=== PATIENT | female | born 1980 | race Caucasian/White ===

== ENCOUNTER 2018-12-23 14:26 | Emergency (ER) | payer BC ==
[2018-12-23] MEDS ORDERED: Lidocaine 1% 30 ML SDV INJECT ONE (14:44)
[2018-12-23] MEDS ORDERED: Diphtheria,Pertussis(Acell),Tetanus Vaccine 0.5 ML Syringe IM ONE (14:48)
--- NOTE | 2018-12-23 21:59 | EDM.PDOC ---
ED HPI GENERAL MEDICAL PROBLEM - General Chief Complaint: Laceration Stated Complaint: laceration left thumb Time Seen by Provider: 12/23/18 14:40 Source of Information: Reports: Patient History Limitations: Reports: No Limitations - History of Present Illness INITIAL COMMENTS - FREE TEXT/NARRATIVE: Pt. sustained a laceration to L dorsal distal thumb with a knife. Her tetanus is not up to date. Denies any injury elsewhere. Pt. has normal ROM to the digit. No numbness/tingling in the distal portion of the extremity. Onset: Today Onset Date: 12/23/18 Location: Reports: Upper Extremity, Left Quality: Reports: Sharp Left Finger-Thumb Pain Score (Numeric/FACES): 5 - Related Data Allergies Allergy/AdvReac Type Severity Reaction Status Date / Time guaifenesin [From Robitussin] Allergy Hives Verified 12/23/18 14:31 Home Meds: Home Meds Sertraline HCl 1 tab PO DAILY 12/23/18 [History] Past Medical History Psychiatric History: Reports: Depression Social & Family History - Tobacco Use Smoking Status *Q: Never Smoker ED ROS GENERAL - Review of Systems Review Of Systems: Unable To Obtain ED EXAM, SKIN/RASH Exam: See Below Exam Limited By: No Limitations General Appearance: Alert, WD/WN, No Apparent Distress Extremities: Other (2 cm laceration to dorsal aspect L thumb. It is superficial. No obvious injury to underlying structures.) ED SKIN PROCEDURES - Laceration/Wound Repair Left Dorsal Digit - 1st (Thumb) Lac/Wound length In cm: 2 Appearance: Superficial Distal NVT: Neuro & Vascular Intact Local Anesthesia - Lidocaine (Xylocaine): 1% Plain Local Anesthetic Volume: 3cc Skin Prep: Chlorhexidine (Hibiciens), Saline Exploration/Debridement/Repair: Wound Explored, Explored to Base, No Foreign Material Found Closed with: Sutures Suture Size: 4-0 Suture Type: Nylon Course - Vital Signs Last Recorded V/S: Last Vital Signs Temp 36.4 C 12/23/18 14:32 Pulse 84 12/23/18 14:32 Resp 18 12/23/18 14:32 BP 101/74 12/23/18 14:32 Pulse Ox 100 12/23/18 14:32 - Orders/Labs/Meds Orders: Active Orders 24 hr Category Date Time Status Vaccines to be Administered [RC] PER UNIT ROUTINE Care 12/23/18 14:48 Active Meds: Medications Discontinued Medications Generic Name Dose Route Start Last Admin Trade Name Ashley PRN Reason Stop Dose Admin Diphtheria/Tetanus/Acell Pertussis 0.5 ml 12/23/18 14:48 12/23/18 15:00 Adacel IM 12/23/18 14:49 0.5 ml .ONCE ONE Administration Lidocaine HCl 30 ml 12/23/18 14:44 12/23/18 14:47 Xylocaine-Mpf 1% INJECT 12/23/18 14:45 30 ml ONETIME ONE Administration Departure - Departure Time of Disposition: 15:00 Disposition: Home, Self-Care 01 Condition: Good Clinical Impression: Laceration - Discharge Information Instructions: Laceration Care, Adult Referrals: PCP,Unobtain [Primary Care Provider] - Forms: ED Department Discharge Additional Instructions: Suture removal in 12 days Ibuprofen as needed for pain Keep area dry for 24 hours Return to ER if there is any redness, swelling, or discharge from the area. - My Orders Last 24 Hours: My Active Orders 12/23/18 14:48 Vaccines to be Administered [RC] PER UNIT ROUTINE - Assessment/Plan Last 24 Hours: My Active Orders 12/23/18 14:48 Vaccines to be Administered [RC] PER UNIT ROUTINE Plan: Suture removal in 12 days Ibuprofen as needed for pain Keep area dry for 24 hours Return to ER if there is any redness, swelling, or discharge from the area.
== END 2018-12-23 15:09 | disposition home or self-care (01) ==
LOC: VM.ED 14:26
DX: S61.012A Laceration without foreign body of left thumb without damage to nail, initial encounter (principal); F32.9 Major depressive disorder, single episode, unspecified; Z88.8 Allergy status to other drugs, medicaments and biological substances; Z23 Encounter for immunization; Z79.899 Other long term (current) drug therapy; W26.0XXA Contact with knife, initial encounter
CPT/HCPCS: 12001; 90471; 90715; 99282; J2001